=== PATIENT | female | born 1970 | race Caucasian/White ===

== ENCOUNTER 2016-06-17 17:31 | Emergency (ER) | payer OTHER ==
[2016-06-17 17:55] VITALS: BP 131/72; O2SAT 98
--- NOTE | 2016-06-17 18:18 | ERPHSYRPT ---
- History of Present Illness Time Seen by Provider: 06/17/16 18:13 Source: patient Exam Limitations: no limitations Patient Subjective Stated Complaint: rt middle finger splinter Triage Nursing Assessment: pt states she got a splinter 2 days ago and when 'i was getting the one splinter out a whole bunch of splinter just came up' has put lots of home remedies on finger with no relief. 'i feel like there is a lot of splinters in there trying to work its way out. bruising noted. pt very anxious and sporatic in movement, involuntary movements noted to all extremities. radial pulse present. visitor at bedside Physician History: The patient is a 46-year-old female with her complaining of possibly getting a splinter in her right middle finger 2 days ago while moving firewood. She states that she has tried to soak the splinter out with salt water and even has tried using a needle to get rid of it. She states that the splinter has gone from the middle of her finger and is coming out the tip of her finger in small pieces. The patient is very anxious and jittery. Her finger is very red, swollen, and painful. She does not remember when her last tetanus vaccine was given. Occurred: days ago (2) Method of Injury: other (splinter) Quality: constant Severity of Pain-Max: moderate Severity of Pain-Current: moderate Extremities Pain Location: 3rd finger: right Modifying Factors: Improves With: other (salt water soaks) Allergies/Adverse Reactions: acetaminophen [From Percocet] Allergy (Verified 06/17/16 17:56) oxycodone [From Percocet] Allergy (Verified 06/17/16 17:56) phenobarbital Allergy (Verified 06/17/16 17:56) Home Medications: Albuterol 8 gm Mdi Hfa [Ventolin Hfa MDI] 8 gm IH QIDPRN PRN 06/17/16 [ History] Ibuprofen 800 mg PO BID 06/17/16 [History] Tiotropium [place] Inhaler [Spiriva 18 Mcg/Cap Inhaler] 1 ea IH DAILY 10/27 [History] Hx Tetanus, Diphtheria Vaccination/Date Given: No Hx Influenza Vaccination/Date Given: No Hx Pneumococcal Vaccination/Date Given: No Immunizations Up to Date: No - Review of Systems Constitutional: No Fever, No Chills Eyes: No Symptoms Ears, Nose, & Throat: No Symptoms Respiratory: No Cough, No Dyspnea Cardiac: No Chest Pain, No Edema, No Syncope Abdominal/Gastrointestinal: No Abdominal Pain, No Nausea, No Vomiting, No Diarrhea Genitourinary Symptoms: No Dysuria Musculoskeletal: No Back Pain, No Neck Pain Skin: Other (redness, swelling, and tenderness.) Neurological: No Dizziness, No Focal Weakness, No Sensory Changes Psychological: No Symptoms Endocrine: No Symptoms Hematologic/Lymphatic: No Symptoms Immunological/Allergic: No Symptoms All Other Systems: Reviewed and Negative - Past Medical History Pertinent Past Medical History: Yes Respiratory History: COPD - Past Surgical History Past Surgical History: Yes Female Surgical History: Hysterectomy, Section Other Surgical History: aneursyn- age 8 - Social History Smoking Status: Current every day smoker Exposure to second hand smoke: Yes Drug Use: none Patient Lives Alone: No - Nursing Vital Signs Nursing Vital Signs: Initial Vital Signs Temperature 98.3 F Temperature Source Oral Pulse Rate 114 Respiratory Rate 18 Blood Pressure 131/72 Pain Intensity 8 - Physical Exam General Appearance: moderate distress, anxiety Eyes, Ears, Nose, Throat Exam: moist mucous membranes Neck Exam: non-tender, supple Cardiovascular/Respiratory Exam: chest non-tender, normal breath sounds, regular rate/rhythm, no respiratory distress Abdominal Exam: non-tender, No guarding Back Exam: normal inspection, No vertebral tenderness Shoulder Exam: normal inspection Elbow/Forearm Exam: normal inspection Wrist Exam: normal inspection Hand Exam: swelling (swelling, tenderness, redness distal half of right middle finger.) Neuro/Tendon Exam: normal sensation, normal motor functions Mental Status Exam: alert, oriented x 3, cooperative Skin Exam: normal color, warm, dry SpO2 Interpretation: normal SpO2: 98 Oxygen Delivery: Room Air - Progress Progress: unchanged Counseled pt/family regarding: diagnosis - Departure Time of Disposition: 18:34 Departure Disposition: Home Clinical Impression: Cellulitis of finger of right hand Condition: Stable Critical Care Time: No Additional Instructions: Warn soaks as needed. Tylenol and Ibuprofen as needed. Clindamycin as directed. Follow up as needed. Prescriptions: Clindamycin HCl 1 cap PO QID #40 capsule
[2016-06-17] MEDS ORDERED: Adacel Vial IM ONE ×2 (18:35→18:43)
[2016-06-17] MEDS ORDERED: TORAdol 30 mg Injection IM ONE (18:36)
[2016-06-17] MEDS ORDERED: TORAdol 30 mg Injection ONE (18:40)
[2016-06-17 18:57] VITALS: PULSE 78
== END 2016-06-17 18:56 | disposition home or self-care (01) ==
LOC: ED 17:31
DX: L03.011 Cellulitis of right finger (principal); S60.452A Superficial foreign body of right middle finger, initial encounter
CPT/HCPCS: 90471; 90715; 96372; 99282; J1885